=== PATIENT | female | born 1945 | race Caucasian/White ===

== ENCOUNTER → 2016-08-08 | Outpatient (CLI) | payer MEDICARE, BC ==
[~2016-08-08] MED LIST: ACETAMINOPHEN PO; ADVAIR 2501 DISK W/D PO; ALBUTEROL17 GM INH; ALPRAZOLAM PO; AMITRIPTYLINE H25 MG PO; AMITRIPTYLINE PO; ANORO ELLIPTA1 EACH IH; ANORO ELLIPTA1 EACH INH; ASPIRIN EC81 M1 PO; ASPIRIN PO; ASPIRIN81 M2 PO; BENAZEPRIL HCL10 M1 PO; BENAZEPRIL HCL10 M2 PO; BENAZEPRIL HCL10 MG PO; BENICAR20 MG PO; BENTYL10 M1 PO; BIOTIN300 MCG PO; CALTRATE 600+D PO; CELEXA PO; CENTRUM PO; CENTRUM SILVER PO; CITRACAL200 MG; CLOPIDOGREL BIS75 MG PO; CLOPIDOGREL75 MG PO; CO Q-1050 MG PO; COMBIVENT INH14.7 GM INH; COZAAR PO; DEXILANT60 MG PO; DOXYCYCLINE PO; DYRENIUM100 MG PO; FISH OIL 1,0001 CA2 PO; FISH OIL 1,0001 CAP PO; FLAGYL PO; IMDUR-ER60 M1 PO; IMDUR-ER60 M2 PO; IMDUR30 MG PO; ISOSORBIDE MONO30 M1 PO; ISOSORBIDE MONO60 M1 PO; KEFLEX PO; LACTINEX PO; LEVAQUIN PO; LIPITOR PO; LIPITOR40 MG PO; LIPITOR80 MG PO; LISINOPRIL10 MG PO; LOPRESSOR PO; LOTREL 5/20 MG1 CAP PO; MACROBID 100 M100 MG PO; MACRODANTIN PO; METOPROLOL TART25 MG PO; MIRTAZAPINE30 M1 PO; MIRTAZAPINE30 MG PO; MULTI-VITAMIN1 TAB PO; NEXIUM PO; NITROFURANTOIN50 M1 PO; NITROGLYCERIN0.4 MG SL; NITROLINGUAL12 G1 TL; NORVASC2.5 MG PO; OMEPRAZOLE40 M1 PO; OMEPRAZOLE40 MG PO; PANTOPRAZOLE SO40 MG PO; PAXIL PO; PERCOCET5/325 PO; PERCOCET7.5 PO; PERIACTIN4 MG; PHENERGAN PO; PHENERGAN12.5 MG PO; PHENERGAN25 M1 PO; PLAVIX PO; PRAVACHOL PO; PRAVACHOL20 MG PO; PROAIR HFA8.5 GM INH; PROBIOTICS; PROTONIX PO; QVAR7.3 GM INH; REMERON PO; REMERON SOLTAB PO; SAVELLA PO; TEMAZEPAM PO; TOPIRAMATE50 MG PO; TOPROL XL PO; TRIMPEX100 MG PO; VICODIN 5/500 T1 TAB PO; XANAX1 MG PO; ZETIA PO
--- NOTE | ~2016-08-08 | CR63 ---
[facility] A Service of [facility] RADIOLOGY TEXT RESULTS PATIENT: BARTOLO VARGAS LOCATION: [facility] : 44 UNIT #: [id number] AGE: [address]: BO TIDWELL MD SEX: F ORDER DR: [id number] [facility] [address] [place], [place] [address] [id number] O MR#: [id number] Acc #: [id number] NAME: BARTOLO VARGAS. : 1945 SEX: F STUDY DATE/TIME: 08/08/2016 12:11 UNIT: [facility] ROOM: STUDY DESCRIPTION: CR Chest 2 View Attending Physician: Bo Tidwell M.D. Referring Physician: Bo Tidwell M.D. Ordering Physician: Bo Tidwell M.D. Primary Care Physician: Valentine Aguillon M.D. MEDICAL IMAGING REPORT This report is preliminary unless electronic signature is present EXAM Chest, PA and lateral, 08/08/2016. HISTORY Pleuritic chest pain, cough and shortness of breath for 1 month. Patient fell and bruised bilateral ribs. Benign essential hypertension, emphysema, COPD. Smoking history. FINDINGS Two views of the chest were obtained. The lungs are clear. The heart and mediastinum have a normal contour, and the heart size is normal. No pleural effusions are seen. The lungs are hyperinflated, consistent with chronic obstructive pulmonary disease. There is no evidence of active disease. IMPRESSION Chronic obstructive pulmonary disease. No active disease. Dictated by... Cruz Oliveira M.D. THIS IS AN ELECTRONICALLY VERIFIED REPORT Cruz Oliveira M.D. at 08/09/2016 7:48 AM RODRI/jethro TD: 08/08/2016 16:40 JOB #: [id number] MEDICAL IMAGING REPORT Page 1 of 1 COPY
== END | disposition home or self-care (01) ==
LOC: CRAD 11:50
DX: R09.1 Pleurisy (principal); J44.9 Chronic obstructive pulmonary disease, unspecified
CPT/HCPCS: 71020

== ENCOUNTER → 2016-08-20 | Day surgery (SDC) | payer MEDICARE, BC ==
--- NOTE | ~2016-08-20 | OR ---
Unit #: [id number] #: [id number] Patient: BARTOLO VARGAS [id number] [address] [place], [place] [address] [id number] O MR#: [id number] NAME: BARTOLO VARGAS ROOM: Date of Procedure: 08/20/2016 Admission Date: 08/20/2016 Surgeon: Sandoval Manning M.D. : 1945 Attending Physician: Sandoval Manning M.D. Primary Care Physician: Caitlin Seth OPERATIVE REPORT PREOPERATIVE DIAGNOSES Post-laminectomy syndrome, chronic radiculopathy, and back pain. POSTOPERATIVE DIAGNOSES Post-laminectomy syndrome, chronic radiculopathy, and back pain. PROCEDURES PERFORMED Placement of percutaneous spinal cord stimulator leads x2 with intravenous sedation under fluoroscopic guidance. DESCRIPTION OF PROCEDURE The patient was placed in a prone position. Standard monitors were applied. Sterile prep and drape was performed. Fluoroscopy was used to identify the L2 and L3 level. The skin just to the left of midline at these 2 levels were localized with 1% lidocaine. An 11 blade was used for stab incision. A #14-gauge introducer needle was then advanced via slight left paramedian approach and loss of resistance technique in toward the epidural space. The patient did not complain of pain or paresthesia during needle placement. Compact lead was then threaded easily just to the right of midline with the distal tip at approximately the mid point of the body of T9. A second stab incision was made also just to the left of midline at this level. A 14-gauge introducer needle was again advanced with loss of resistance technique. Subcompact lead was then advanced with fluoroscopic guidance slightly medial to the compact lead. Initial stimulation was too low in the buttock. Moved this up to the distal electrodes were up towards the top of T8. Here, we got stimulation covering all of the patient's back. After confirming all painful areas were covered, both catheters were securely fashioned using 2-0 sutures and sterile dressings were applied. The patient was discharged to the recovery room for programming. The brand eins Verlagtronic leads used were lot number [id number] and [id number]. Dictated by... Quinn MikeP/shawn TD: 08/20/2016 10:51 JOB #: [id number] CC: Pain Center Unit #: [id number] #: [id number] Patient: BARTOLO VARGAS OPERATIVE REPORT Page 1 of 1 X Sandoval Manning MD X PROCEDURE OPERATIVE NOTE
== END | disposition home or self-care (01) ==
LOC: CCSC 07:25 → CSUR 09:00 → CCSC 09:00 → CSUR 09:30
DX: M96.1 Postlaminectomy syndrome, not elsewhere classified (principal); M54.16 Radiculopathy, lumbar region; I11.0 Hypertensive heart disease with heart failure; I50.9 Heart failure, unspecified; J44.9 Chronic obstructive pulmonary disease, unspecified; K21.9 Gastro-esophageal reflux disease without esophagitis; F32.9 Major depressive disorder, single episode, unspecified; F41.9 Anxiety disorder, unspecified; Z86.718 Personal history of other venous thrombosis and embolism; Z88.1 Allergy status to other antibiotic agents; Z88.2 Allergy status to sulfonamides; Z88.5 Allergy status to narcotic agent; Z88.8 Allergy status to other drugs, medicaments and biological substances; Z91.041 Radiographic dye allergy status; Z79.02 Long term (current) use of antithrombotics/antiplatelets; Z79.899 Other long term (current) drug therapy
CPT/HCPCS: C1778; J2250

== ENCOUNTER → 2016-09-19 | Outpatient (CLI) | payer MEDICARE, BC ==
--- NOTE | ~2016-09-19 | US5 ---
[facility] A Service of [facility] RADIOLOGY TEXT RESULTS PATIENT: BARTOLO VARGAS LOCATION: [facility] : 43 UNIT #: [id number] AGE: [address]: BO SHERMAN MD SEX: F ORDER DR: [id number] [facility] [address] [place], [place] [address] [id number] O MR#: [id number] Acc #: [id number] NAME: BARTOLO VARGAS. : 1945 SEX: F STUDY DATE/TIME: 09/19/2016 10:44 UNIT: [facility] ROOM: STUDY DESCRIPTION: US Abdominal Complete Attending Physician: Bo Sherman M.D. Referring Physician: Caitlin Seth Ordering Physician: Bo Sherman M.D. Primary Care Physician: Bo Sherman M.D. MEDICAL IMAGING REPORT This report is preliminary unless electronic signature is present EXAMINATION Complete abdominal ultrasound. DATE 09/19/2016 HISTORY Abnormal elevated liver function test. Previous cholecystectomy. Previous history of myocardial infarction. COMPARISON Right upper quadrant abdominal ultrasound, 07/28/2013. FINDINGS The midabdominal aorta is aneurysmal measuring 4.1 cm. Color flow was documented within the abdominal aorta. IVC has normal wesley-scale appearance and demonstrates normal color flow. Pancreas has normal sonographic appearance. Liver demonstrates a simple cyst in the left hepatic lobe measuring 1.8 cm. No suspicious liver lesions are identified. The liver does not appear cirrhotic. No ascites is evident. Main portal vein is patent. Right kidney measures 9.0 cm in length without focal cortical lesion, shadowing stone or hydronephrosis. Left kidney measures 9.1 cm in length without focal cortical lesion, shadowing stone or hydronephrosis. Spleen size is normal, 8.5 cm. No ascites. Gallbladder is surgically absent. No biliary ductal dilation is identified. The common bile duct itself is not discretely visualized or measured by the technologist. IMPRESSION 1. Simple left hepatic cysts. 2. Mid abdominal aortic aneurysm measuring nearly 4.1 cm. [facility] A Service of [facility] RADIOLOGY TEXT RESULTS PATIENT: BARTOLO VARGAS LOCATION: [facility] : 43 UNIT #: [id number] AGE: [address]: BO SHERMAN MD SEX: F ORDER DR: 3. Cholecystectomy. 4. The extrahepatic bile duct is not discretely imaged or visualized by the technologist, but no intrahepatic biliary ductal dilation is seen. Dictated by... Goldie Ordonez M.D. THIS IS AN ELECTRONICALLY VERIFIED REPORT Goldie Ordonez M.D. at 09/20/2016 8:38 AM ROLANDO/jerica TD: 09/19/2016 18:42 JOB #: [id number] MEDICAL IMAGING REPORT Page 1 of 1 COPY
== END | disposition home or self-care (01) ==
LOC: CWCC 10:15
DX: R94.5 Abnormal results of liver function studies (principal); K76.89 Other specified diseases of liver; I71.4 Abdominal aortic aneurysm, without rupture; Z90.49 Acquired absence of other specified parts of digestive tract
CPT/HCPCS: 76700

== ENCOUNTER → 2016-10-03 | Outpatient (CLI) | payer MEDICARE, BC ==
--- NOTE | ~2016-10-03 | EKG ---
PATIENT: BARTOLO VARGAS UNIT #: [id number] Ventricular Rate: 56 BPM Atrial Rate: 56 BPM P-R Interval: 112 ms QRS Duration: 72 ms Q-T Interval: 402 ms QTC Calculation(Bezet): 387 ms P [place]: 36 degrees Calculated R [place]: 61 degrees Calculated T [place]: 67 degrees Diagnosis Line: Sinus bradycardia Diagnosis Line: Otherwise normal ECG Diagnosis Line: When compared with ECG of 16-DEC-2009 11:28, Diagnosis Line: RSR' pattern in V1 is no longer Present Diagnosis Line: Confirmed by PARTHA PIPER MD ([id number]) on Diagnosis Line: 10/05/2016 7:56:08 AM INTERPRETING MD: FELIZ RAGLAND
[2016-10-03 14:55] LABS: HEMATOCRIT 41.5 % (35.0-45.0); HEMOGLOBIN 13.8 gm/dL (12.0-16.0); MEAN CELL VOLUME 88.8 FL (83-96); MEAN CORPUSCULAR HEMOGLOBIN 29.5 PG (28-34); MEAN CORPUSCULAR HGB CONC 33.2 g/dL (30-36); MEAN PLATELET VOLUME 8.5 FL (6.5-11.5); RED BLOOD COUNT 4.68 X10e (3.90-5.30); RED CELL DISTRIBUTION WIDTH 15.7 % (11.0-15.5); WHITE BLOOD COUNT 5.9 X10e3 (4.0-10.5)
[2016-10-03 15:38] LABS: BUN/CREATININE RATIO 17.5; CALCIUM SERUM 9.3 mg/dL (8.4-10.2); CREATININE SERUM 0.8 mg/dL (0.6-1.4); GLOM FILT RATE Estimated 73.7 mL/min (>60); POTASSIUM 3.9 mmol/L (3.5-5.1)
== END | disposition home or self-care (01) ==
LOC: CAMB 13:47
PROVIDERS: Pain Medicine Pain Medicine
DX: Z01.818 Encounter for other preprocedural examination (principal); M54.16 Radiculopathy, lumbar region
CPT/HCPCS: 36415; 80048; 85027; 93005

== ENCOUNTER → 2016-10-08 | Day surgery (SDC) | payer MEDICARE, BC ==
--- NOTE | ~2016-10-08 | OR ---
Unit #: [id number] #: [id number] Patient: BARTOLO VARGAS [id number] [address] [place], [place] [address] [id number] O MR#: [id number] NAME: BARTOLO VARGAS ROOM: Date of Procedure: 10/08/2016 Admission Date: 10/08/2016 Surgeon: Sandoval Manning M.D. : 1945 Attending Physician: Sandoval Manning M.D. Primary Care Physician: Haroldo Sheramn M.D. OPERATIVE REPORT JOB NOTE: CC: [facility] PREOPERATIVE DIAGNOSES Post-laminectomy syndrome, chronic radiculopathy. POSTOPERATIVE DIAGNOSES Post-laminectomy syndrome, chronic radiculopathy. PROCEDURES PERFORMED Placement of spinal cord stimulator leads x2, placement of spinal cord stimulator pulse generator complex stimulating. ANESTHESIA MAC. ESTIMATED BLOOD LOSS 10 mL. PREOPERATIVE ANTIBIOTICS Vanco weight based protocol. DESCRIPTION OF PROCEDURE The patient was placed in a prone position. She got herself comfortable on the table. Standard monitors were applied. The patient was sterilely prepped and then draped. Fluoroscopy was used to identify the spinous process at the L1, L2, and L3 levels. The skin just lateral to the left of midline at these levels localized with 0.5% Marcaine. Sharp and then Bovie dissection was used to dissect down to the paraspinous space. A 14-gauge introducer needle was advanced first then at the L1 level via slight left paramedian approach just to the right of midline. Subcompact stimulator lead was then advanced in the midline, so the distal electrode was approximately the midbody of T8. A 14-gauge introducer needle was then advanced down at the L2 level via left paramedian approach advanced just to the right of midline. The compact lead was then advanced using fluoroscopic guidance, so the distal tip laid about the mid body to the upper body of T9 just to the right of midline. We had to manipulate and change the position of the subcompact lead couple of times before it came to this final resting place. Stimulation was obtained with some difficulty, but we were able to cover her back and bilateral lower extremities, especially the right which is the most painful. The leads were then anchored in place using the anchoring system and 2-0 silk sutures. The patient's left buttock was localized with 0.5% Marcaine. Unit #: [id number] #: [id number] Patient: BARTOLO VARGAS Sharp and then Bovie dissection was used to create an IPG pocket and was properly sized. The tunneling device was passed from the buttock to the paraspinous wound and the leads were easily threaded down into the buttock wound. Both wounds were irrigated with irrigant. The leads were attached to the IPG and impedances were checked. They were all acceptable. IPG was then placed in the left buttock pocket. Both wounds were closed in 2 layers with 2-0 Vicryl and the skin was closed with kvng. The patient tolerated the procedure otherwise well and was discharged to the recovery room in stable condition. The Medtronic materials were patient it programmer analyst serial #[id number], Charging system serial #[id number], lead kit the same lead kit lot #[id number]. Dictated by... Quinn Mike/shawn TD: 10/08/2016 15:21 JOB #: [id number] OPERATIVE REPORT Page 1 of 1 X Sandoval Manning MD X PROCEDURE OPERATIVE NOTE
== END | disposition home or self-care (01) ==
LOC: CSUR 09:53
DX: G89.29 Other chronic pain (principal); M96.1 Postlaminectomy syndrome, not elsewhere classified; M54.16 Radiculopathy, lumbar region; K21.9 Gastro-esophageal reflux disease without esophagitis; J43.9 Emphysema, unspecified; I11.0 Hypertensive heart disease with heart failure; I50.9 Heart failure, unspecified; Z88.2 Allergy status to sulfonamides; Z88.5 Allergy status to narcotic agent; Z88.1 Allergy status to other antibiotic agents; Z88.8 Allergy status to other drugs, medicaments and biological substances; Z91.041 Radiographic dye allergy status; Z87.891 Personal history of nicotine dependence; Z79.02 Long term (current) use of antithrombotics/antiplatelets; Z79.899 Other long term (current) drug therapy; Z98.42 Cataract extraction status, left eye; Z95.5 Presence of coronary angioplasty implant and graft; Z98.890 Other specified postprocedural states
CPT/HCPCS: 77003; C1778; C1820; J1170; J2250; J3010; J3370